=== PATIENT | female | born 1960 | race Caucasian/White ===

== ENCOUNTER 2018-05-09 05:59 | Day surgery (SDC) | payer OTHER, SELFPAY ==
[2018-05-09 06:26] VITALS: BP 166/68; PULSE 63; RESP 16; TEMP 36.7; O2SAT 95; BMI 35.1
[2018-05-09] MEDS: Cefazolin 2 GM in 0.9% Normal Saline 100 ML IV (07:25)
--- NOTE | 2018-05-09 07:30 | RAD_ITS ---
STUDY: X-RAY - LEFT KNEE REASON FOR EXAM: Female, 57 years old. Arthroscopy. TECHNIQUE: 2 fluoroscopic view(s) of the knee. COMPARISON: None. FINDINGS: Intraoperative imaging provided for arthroscopy. A metallic probe is seen entering the medial aspect of the proximal tibia. RAD/Knee 1 or 2 Views IMPRESSION: Fluoroscopic imaging provided for knee arthroscopy. Electronically Signed: Jose Raphael MD at 10:37 EDT Tel [phone], Service support ,
[2018-05-09] MEDS: Bupivacaine Mpf 0.5% 30 ML VIAL (08:12)
--- NOTE | 2018-05-09 08:14 | PCM.IMDPSTOP ---
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, subchondral stress fx medial tibial plateau left knee Post-Operative Diagnosis: same Surgery/Procedure Performed:: Arthroscopic chondroplasty medial and lateral femoral condyles, partial medial meniscectomy and biologic internal fixation subchondral stress fx left medial tibial plateau Description of Surgical Findings:: see note Estimated Blood Loss: min Specimen's removed: none Drains: none Type of Anesthesia:: General ASA Class: ASA2 Mod Systematic Disease - Admit VTE Documentation VTE Present on Admission: No VTE Mechan Device Prophylaxis: SCD's VTE Pharm Prophylaxis ordered?: No Reason prophylaxis not ordered:: Treatment Not Indicated
--- NOTE | 2018-05-09 08:19 | OP.PN_ITS ---
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, subchondral stress fx medial tibial plateau left knee Post-Operative Diagnosis: same Surgery/Procedure Performed:: Arthroscopic chondroplasty medial and lateral femoral condyles, partial medial meniscectomy and biologic internal fixation subchondral stress fx left medial tibial plateau Description of Surgical Findings:: see note Estimated Blood Loss: min Specimen's removed: none Drains: none Type of Anesthesia:: General ASA Class: ASA2 Mod Systematic Disease - Admit VTE Documentation VTE Present on Admission: No VTE Mechan Device Prophylaxis: SCD's VTE Pharm Prophylaxis ordered?: No Reason prophylaxis not ordered:: Treatment Not Indicated
[2018-05-09 08:33] VITALS: BP 161/89; BP 166/68; PULSE 84; RESP 16; TEMP 35.9; O2SAT 95
[2018-05-09 08:45] VITALS: BP 138/76; BP 166/68; PULSE 72; RESP 16; O2SAT 97
[2018-05-09 08:59] VITALS: BP 143/83; BP 166/68; PULSE 71; RESP 16; O2SAT 97
[2018-05-09 09:10] VITALS: BP 149/56; BP 166/68; PULSE 61; RESP 16; TEMP 36.4; O2SAT 95
[2018-05-09 09:45] VITALS: BP 166/68
== END 2018-05-09 09:48 | disposition home or self-care (01) ==
LOC: SDC 06:00 → AC 06:02
PROVIDERS: Family Provider Family Medicine; PCP Family Medicine; Visit Provider Orthopaedic Surgery
PROC: (CPT 29870; principal; 2018-05-09 07:10)
DX: M94.262 Chondromalacia, left knee (principal); S82.102A Unspecified fracture of upper end of left tibia, initial encounter for closed fracture; S83.242A Other tear of medial meniscus, current injury, left knee, initial encounter; S80.02XA Contusion of left knee, initial encounter; E66.3 Overweight; Z68.34 Body mass index [BMI] 34.0-34.9, adult
CPT/HCPCS: 01400; 29880; 73560; 76000; C1713; J7120; J2405